=== PATIENT | female | born 1950 | race Caucasian/White ===

== ENCOUNTER → 2022-11-14 | Day surgery (SDC) | payer MEDICARE ==
[~2022-11-14] MED LIST: BUPIVACAINE HC 0.75% PF 10ML VIAL INJ ONE; CELEBREX200 MG PO; CHONDR SU A NA/HYALUR SOD 1 EACH KIT IO ONE; CYCLOPENTOLATE HCL 2% OPTH SOLN 2 ML BTL OP ONE; EPINEPHRINE HCL 1:1000 1ML 1 MG/ML AMP ONE; GATIFLOXACIN(OPTH) 5 ML LIQD ONE; LIDOCAINE HCL 2% LOCAL INJ 5 ML SDV VIAL INJ ONE; METRONIDAZOLE500 MG TOP; MULTI-VITAMIN1 EACH PO; NEURONTIN300 MG PO; PHENYLEPHRINE HCL 2 ML DROPS ONE; POVIDONE IODINE 0.05% 0.05 % ML PO ONE; POVIDONE IODINE 5% (OPTH) 30 ML BTL ONE; PROPOFOL IV EMULSION 10 MG/ML 20 ML VIAL ONE; TOPIRAMATE100 MG PO
[2022-11-14 07:24] LABS: BASOPHILS # (AUTO) 0.1 (0.0-0.1); BASOPHILS % 0.9 % (0.0-1.0); EOSINOPHILS # (AUTO) 0.1 (0.0-0.4); EOSINOPHILS % 1.3 % (0.0-6.0); LYMPHOCYTES # (AUTO) 2.3 (1.0-3.2); LYMPHOCYTES % 35.8 % (18.0-39.1); MEAN CORPUSCULAR HEMOGLOBIN 29.7 pg (28-32); MEAN CORPUSCULAR HGB CONC 31.6 g/dL (31-35); MEAN CORPUSCULAR VOLUME 94.1 fL (81-99); MONOCYTES # (AUTO) 0.4 (0.2-0.8); MONOCYTES % 5.5 % (4.4-11.3); NEUTROPHILS # (AUTO) 3.6 (2.1-6.9); NEUTROPHILS % 56.3 % (38.7-80.0); PLATELET COUNT 177 x10e3/uL (140-360); RED BLOOD COUNT 4.04 x10e6/uL (3.6-5.1); RED CELL DISTRIBUTION WIDTH 13.2 % (11.7-14.4)
[2022-11-14 09:30] VITALS: BP 153/71
== END | disposition home or self-care (01) ==
LOC: OR 05:54
PROVIDERS: ATTEND Ophthalmology
DX: H25.12 Age-related nuclear cataract, left eye (principal); M19.90 Unspecified osteoarthritis, unspecified site; M54.9 Dorsalgia, unspecified; F41.9 Anxiety disorder, unspecified; Z88.1 Allergy status to other antibiotic agents; Z79.1 Long term (current) use of non-steroidal anti-inflammatories (NSAID); Z79.899 Other long term (current) drug therapy
CPT/HCPCS: 36415; 66984; 85025; J0171; V2632; J2001